=== PATIENT | female | born 1980 | race African-American/Black ===

== ENCOUNTER 2016-11-09 20:20 | Emergency (ER) | payer OTHER ==
[~2016-11-09] VITALS: Ht 175.3 cm; Wt 84.1 kg
[2016-11-09] MEDS ORDERED: LORA10TA7 PO (20:38)
[2016-11-09] MEDS ORDERED: ALBU8HFA IH (20:38)
[2016-11-09] MEDS ORDERED: CYCLOBENZAPRINE HCL 10 MG TABLET PO ONE (21:45)
[2016-11-09] MEDS ORDERED: KETOROLAC TROMETHAMINE 10 MG TABLET PO ONE (21:45)
[2016-11-09 22:14] VITALS: BP 128/86
== END 2016-11-09 22:15 | disposition home or self-care (01) ==
LOC: EMS 20:22
DX: S29.012A Strain of muscle and tendon of back wall of thorax, initial encounter (principal); M43.6 Torticollis; M62.838 Other muscle spasm; J45.909 Unspecified asthma, uncomplicated; X58.XXXA Exposure to other specified factors, initial encounter; Y92.89 Other specified places as the place of occurrence of the external cause; Y93.I1 Activity, roller coaster riding; Y99.9 Unspecified external cause status
CPT/HCPCS: 99283

== ENCOUNTER 2017-02-20 10:44 | Emergency (ER) | payer OTHER ==
[~2017-02-20] VITALS: Ht 177.8 cm; Wt 83.2 kg
[~2017-02-20 10:44] MED LIST: ALBU8HFA IH; LORA10TA7 PO
[2017-02-20 12:07] VITALS: BP 146/93
== END 2017-02-20 12:38 | disposition home or self-care (01) ==
LOC: EMS 10:45
DX: F41.9 Anxiety disorder, unspecified (principal); R00.0 Tachycardia, unspecified; G93.40 Encephalopathy, unspecified; J45.909 Unspecified asthma, uncomplicated; F11.90 Opioid use, unspecified, uncomplicated
CPT/HCPCS: 93005; 99285

== ENCOUNTER 2020-01-03 16:37 | Emergency (ER) | payer OTHER ==
[~2020-01-03] VITALS: Ht 177.8 cm; Wt 100.0 kg
[2020-01-03 16:51] VITALS: BP_DIAS 56
[2020-01-03 16:58] VITALS: BP_SYST 143
== END 2020-01-03 18:53 | disposition home or self-care (01) ==
LOC: EMS 16:37
DX: S82.832A Other fracture of upper and lower end of left fibula, initial encounter for closed fracture (principal); X50.9XXA Other and unspecified overexertion or strenuous movements or postures, initial encounter; Y93.89 Activity, other specified; Y92.89 Other specified places as the place of occurrence of the external cause; Y99.8 Other external cause status
CPT/HCPCS: 29515

== ENCOUNTER 2020-09-12 01:10 | Emergency (ER) | payer OTHER ==
[~2020-09-12] VITALS: Ht 175.3 cm; Wt 106.8 kg
[2020-09-12 01:26] VITALS: BP 126/83
[2020-09-12] MEDS ORDERED: SODIUM CHLORIDE 0.9% 1,000 ML IV ONE (01:30)
== END 2020-09-12 02:15 | disposition left against medical advice (07) ==
LOC: EMS 01:12
DX: G40.909 Epilepsy, unspecified, not intractable, without status epilepticus (principal); F16.10 Hallucinogen abuse, uncomplicated; J45.909 Unspecified asthma, uncomplicated
CPT/HCPCS: 82962; 96360; 99283; J7030

== ENCOUNTER 2021-12-31 21:25 | Emergency (ER) | payer OTHER | END 2022-01-01 01:46 | disposition left against medical advice (07) | LOC: EMS 21:25 | DX: Z53.21 Procedure and treatment not carried out due to patient leaving prior to being seen by health care provider (principal) ==

== ENCOUNTER 2024-02-15 18:23 | Emergency (ER) | payer OTHER ==
[~2024-02-15] VITALS: Ht 175.3 cm; Wt 100.0 kg
[2024-02-15 18:39] VITALS: TEMP 98.2
[2024-02-15 22:59] LABS: BASOPHILS % (AUTO) 0.4 % (0.0-2.0); EOSINOPHILS % (AUTO) 2.9 % (1.0-6.0); HEMATOCRIT 39.3 % (36-46); HEMOGLOBIN 12.8 g/dL (12.0-16.0); LYMPHOCYTES # (AUTO) 2.5 K/uL (1.0-4.8); LYMPHOCYTES % (AUTO) 26.3 % (22.0-44.0); MEAN CORPUSCULAR HEMOGLOBIN 29.3 pg (26.0-34.0); MEAN CORPUSCULAR HGB CONC 32.6 G/dL (31.0-37.0); MEAN CORPUSCULAR VOLUME 90 fL (80-100); MONOCYTES # (AUTO) 0.5 K/uL (0.1-1.0); MONOCYTES % (AUTO) 5.4 % (2.0-9.0); NEUTROPHILS # (AUTO) 6.3 K/uL (1.8-7.7); PLATELET COUNT (AUTO) 193 K/uL (150-450); RED BLOOD CELL COUNT(AUTO) 4.36 MIL/uL (4.00-5.20); WHITE BLOOD COUNT (AUTO) 9.7 K/uL (4.5-11.0)
[2024-02-15 23:14] LABS: ANION GAP 4 mmol/L (8-16); CALCIUM, TOTAL 8.4 mg/dL (8.8-10.5); CARBON DIOXIDE 30 mmol/L (22-29); CHLORIDE 107 mmol/L (98-107); CREATININE 0.93 mg/dL (0.60-1.30); GLOMERULAR FILTR. RATE CALC > 60 mL/min (>60); GLUCOSE,RANDOM 109 mg/dL (70-110); POTASSIUM 3.6 mmol/L (3.5-5.1); SODIUM SERUM 141 mmol/L (136-145); UREA NITROGEN, BLOOD 16 mg/dL (7-18)
[2024-02-15 23:20] LABS: ALANINE AMINOTRANSFERASE 17 U/L (12-78); ALBUMIN 2.8 g/dL (3.4-5.0); ALKALINE PHOSPHATASE 60 U/L (46-116); ASPARTATE AMINOTRANSFERASE 13 U/L (15-37); BILIRUBIN,TOTAL 0.1 mg/dL (0.1-1.0); LIPASE 18 U/L (16-77); TOTAL PROTEIN, SERUM 5.6 g/dL (6.4-8.2)
[2024-02-15 23:21] VITALS: BP 137/82; PULSE 79; RESP 18; O2SAT 100
[2024-02-15 23:40] LABS: BILIRUBIN,DIRECT < 0.05 mg/dL (0.00-0.20)
[2024-02-16 00:28] LABS: APPEARANCE,URINE HAZY (CLEAR); BILIRUBIN,URINE NEGATIVE (NEGATIVE); COLOR,URINE YELLOW (YELLOW); GLUCOSE, URINE (UA) NEGATIVE (NEGATIVE); KETONES,URINE NEGATIVE (NEGATIVE); LEUKOCYTE ESTERASE ,URINE LARGE (NEGATIVE); NITRATE,URINE NEGATIVE (NEGATIVE); OCCULT BLOOD,URINE TRACE (NEGATIVE); PROTEIN,URINE TRACE mg/dL (NEGATIVE); SPECIFIC GRAVITIY, URINE 1.027 (1.003-1.030); UROBILINOGEN,URINE <=1.0 mg/dL (<=1.0)
[2024-02-16 00:35] LABS: BACTERIA,URINE Many /HPF (None Seen); SQUAMOUS EPITHELIAL CELL,UR Moderate /LPF (None Seen)
[2024-02-16] MEDS: AZITHROMYCIN 500 MG TABLET PO ONE (02:56)
[2024-02-16] MEDS: CefTRIAXone SODIUM 1 GM/VIAL IM ONE (02:56)
[2024-02-16] MEDS: LIDOCAINE/PF 1% 2 ML VIAL IM ONE (02:57)
[2024-02-16] MEDS ORDERED: CEPH-558 PO (03:48)
== END 2024-02-16 04:12 | disposition home or self-care (01) ==
LOC: EMS 18:23
DX: A64 Unspecified sexually transmitted disease (principal); N39.0 Urinary tract infection, site not specified; J45.909 Unspecified asthma, uncomplicated
CPT/HCPCS: 99283; 80048; 80076; 81001; 83690; 84703; 85025; 87086; 36415; 87491; 87591; 96372; J0456; J0696; J3490

== ENCOUNTER 2024-06-15 21:26 | Emergency (ER) | payer OTHER ==
[~2024-06-15] VITALS: Ht 177.8 cm; Wt 86.4 kg
[~2024-06-15 21:26] MED LIST changes: -ALBU8HFA IH; +CEPH-558 PO; -LORA10TA7 PO
[2024-06-15 22:26] VITALS: BP 156/94; PULSE 89; RESP 18; TEMP 98.5; O2SAT 99
[2024-06-15 23:00] LABS: BASOPHILS % (AUTO) 0.4 % (0.0-2.0); EOSINOPHILS % (AUTO) 2.3 % (1.0-6.0); HEMATOCRIT 42.5 % (36-46); HEMOGLOBIN 13.5 g/dL (12.0-16.0); LYMPHOCYTES # (AUTO) 2.2 K/uL (1.0-4.8); MEAN CORPUSCULAR HEMOGLOBIN 28.7 pg (26.0-34.0); MEAN CORPUSCULAR HGB CONC 31.9 G/dL (31.0-37.0); MEAN CORPUSCULAR VOLUME 90 fL (80-100); MONOCYTES # (AUTO) 0.4 K/uL (0.1-1.0); MONOCYTES % (AUTO) 5.2 % (2.0-9.0); NEUTROPHILS # (AUTO) 4.6 K/uL (1.8-7.7); NEUTROPHILS % (AUTO) 62.1 % (40.0-70.0); PLATELET COUNT (AUTO) 217 K/uL (150-450); RED BLOOD CELL COUNT(AUTO) 4.73 MIL/uL (4.00-5.20); RED CELL DISTRIBUTION WIDTH 13.6 % (11.5-14.5); WHITE BLOOD COUNT (AUTO) 7.4 K/uL (4.5-11.0)
[2024-06-15 23:15] LABS: ANION GAP 8 mmol/L (8-16); CALCIUM, TOTAL 9.2 mg/dL (8.8-10.5); CARBON DIOXIDE 29 mmol/L (22-29); CHLORIDE 103 mmol/L (98-107); CREATININE 0.79 mg/dL (0.60-1.30); GLOMERULAR FILTR. RATE CALC > 60 mL/min (>60); GLUCOSE,RANDOM 138 mg/dL (70-110); POTASSIUM 3.3 mmol/L (3.5-5.1); SODIUM SERUM 140 mmol/L (136-145); UREA NITROGEN, BLOOD 12 mg/dL (7-18)
[2024-06-15 23:17] LABS: HCG,QUANTITATIVE < 1 mIU/mL (0-6)
== END 2024-06-16 01:01 | disposition left against medical advice (07) ==
LOC: EMS 21:29
DX: N93.9 Abnormal uterine and vaginal bleeding, unspecified (principal); R10.84 Generalized abdominal pain; Z53.21 Procedure and treatment not carried out due to patient leaving prior to being seen by health care provider
CPT/HCPCS: 80048; 84702; 85025; 86850; 86900; 86901

== ENCOUNTER → 2024-07-16 | Emergency (ER) | payer OTHER ==
[~2024-07-16] VITALS: Ht 177.8 cm; Wt 98.5 kg
[~2024-07-16] MED LIST changes: +ACET-3385 PO; +CEFP200T12 PO; +CEFPODOXIME PROXETIL 200 MG TABLET PO ONE; +DOXY-354 PO; +IBUP-1492 PO; +LIDO700A15 TP; +METR500 PO
[2024-07-16 19:34] VITALS: TEMP 98.2
[2024-07-16 20:02] LABS: APPEARANCE,URINE HAZY (CLEAR); BILIRUBIN,URINE NEGATIVE (NEGATIVE); COLOR,URINE LIGHT YELLOW (YELLOW); GLUCOSE, URINE (UA) NEGATIVE (NEGATIVE); KETONES,URINE NEGATIVE (NEGATIVE); LEUKOCYTE ESTERASE ,URINE LARGE (NEGATIVE); NITRATE,URINE NEGATIVE (NEGATIVE); OCCULT BLOOD,URINE NEGATIVE (NEGATIVE); PH,URINE 6.5 (5.0-8.0); PROTEIN,URINE 30-70 mg/dL (NEGATIVE); SPECIFIC GRAVITIY, URINE 1.029 (1.003-1.030)
[2024-07-16 20:12] LABS: RBC,URINE 0-2 /HPF (0-2)
[2024-07-16 20:13] LABS: BACTERIA,URINE Moderate /HPF (None Seen); SQUAMOUS EPITHELIAL CELL,UR Few /LPF (None Seen)
[2024-07-16] MEDS: DOXYCYCLINE HYCLATE 100 MG TABLET PO ONE (22:49)
[2024-07-16] MEDS: CefTRIAXone SODIUM 1 GM/VIAL IM ONE (22:49)
[2024-07-16] MEDS: LIDOCAINE/PF 1% 2 ML VIAL IM ONE (22:49)
[2024-07-16 22:51] LABS: BASOPHILS % (AUTO) 0.6 % (0.0-2.0); EOSINOPHILS % (AUTO) 3.4 % (1.0-6.0); HEMATOCRIT 40.1 % (36-46); HEMOGLOBIN 12.9 g/dL (12.0-16.0); LYMPHOCYTES % (AUTO) 27.1 % (22.0-44.0); MEAN CORPUSCULAR HEMOGLOBIN 28.7 pg (26.0-34.0); MEAN CORPUSCULAR HGB CONC 32.1 G/dL (31.0-37.0); MEAN CORPUSCULAR VOLUME 89 fL (80-100); MONOCYTES # (AUTO) 0.3 K/uL (0.1-1.0); MONOCYTES % (AUTO) 4.7 % (2.0-9.0); NEUTROPHILS # (AUTO) 4.6 K/uL (1.8-7.7); NEUTROPHILS % (AUTO) 64.2 % (40.0-70.0); PLATELET COUNT (AUTO) 212 K/uL (150-450); RED BLOOD CELL COUNT(AUTO) 4.49 MIL/uL (4.00-5.20); RED CELL DISTRIBUTION WIDTH 13.8 % (11.5-14.5); WHITE BLOOD COUNT (AUTO) 7.2 K/uL (4.5-11.0)
[2024-07-16 23:00] LABS: ANION GAP 5 mmol/L (8-16); CALCIUM, TOTAL 8.9 mg/dL (8.8-10.5); CARBON DIOXIDE 30 mmol/L (22-29); CHLORIDE 105 mmol/L (98-107); CREATININE 0.85 mg/dL (0.60-1.30); GLOMERULAR FILTR. RATE CALC > 60 mL/min (>60); GLUCOSE,RANDOM 100 mg/dL (70-110); POTASSIUM 3.8 mmol/L (3.5-5.1); SODIUM SERUM 140 mmol/L (136-145); UREA NITROGEN, BLOOD 19 mg/dL (7-18)
[2024-07-16 23:06] LABS: PREGNANCY RESULT, SERUM NEGATIVE (NEGATIVE)
[2024-07-16 23:07] LABS: ALBUMIN 3.3 g/dL (3.4-5.0); BILIRUBIN,DIRECT 0.1 mg/dL (0.00-0.20); BILIRUBIN,TOTAL 0.2 mg/dL (0.1-1.0); TOTAL PROTEIN, SERUM 6.8 g/dL (6.4-8.2)
[2024-07-16 23:21] LABS: RAPID PLASMA REAGIN NONREACTIVE (NONREACTIVE)
[2024-07-16] MEDS: MetroNIDAZOLE 250 MG TABLET PO ONE (23:39)
[2024-07-17 00:16] VITALS: BP 145/86; PULSE 79; RESP 16; O2SAT 99
[2024-07-19 01:06] LABS: HIV 1-2 SCREEN 4TH GEN W/RFLX Non Reactive (Non Reactive)
== END | disposition home or self-care (01) ==
LOC: EMS 19:23
DX: N39.0 Urinary tract infection, site not specified (principal); A59.9 Trichomoniasis, unspecified; J45.909 Unspecified asthma, uncomplicated
CPT/HCPCS: 99283; 86592; 80048; 80076; 81001; 84703; 85025; 87086; 87210; 36415; 87491; 87591; 96372; 87389; J0696; J3490